=== PATIENT | female | born 1960 | race Caucasian/White ===

== ENCOUNTER 2023-10-18 14:14 | Day surgery (SDC) | payer BC ==
[2023-10-18] MEDS ORDERED: XYLOCAINE-MPF 1% 5ML SDV IJ ONE (14:15)
[2023-10-18] MEDS ORDERED: Decadron 4 MG INJ IV ONE (14:15)
[2023-10-18] MEDS ORDERED: Sodium Chloride 0.9(Preservative Free) 10 ML IJ ONE (14:15)
[2023-10-18] MEDS ORDERED: Lactated Ringers 1,000 ML IV ONE (16:31)
--- NOTE | 2023-10-18 16:47 | XRAY ---
Indication: Cervical JOSE. Intraoperative fluoroscopy provided for 29 seconds. 3 digital spot image submitted for interpretation demonstrates posterior needle tip at the cervical thoracic junction. Small amount of contrast injected for needle tip placement. Correlate with intraoperative findings/report.
--- NOTE | 2023-10-18 16:53 | XRAY ---
29 seconds of fluoroscopy was used in surgery for a cervical JOSE.
== END 2023-10-18 16:30 | disposition home or self-care (01) ==
LOC: SDC-PAIN 14:14
PROVIDERS: ATTEND Psychiatry & Neurology Pain Medicine
DX: M54.12 Radiculopathy, cervical region (principal); Z79.899 Other long term (current) drug therapy
CPT/HCPCS: 62321; 72040; 77003; J1100; Q9966

== ENCOUNTER 2023-11-28 11:21 | Day surgery (SDC) | payer BC ==
[2023-11-28] MEDS ORDERED: LIDOCAINE HCL 2% 100 MG/5 ML IJ ONE (11:22)
[2023-11-28] MEDS ORDERED: Decadron 4 MG INJ IV ONE (11:22)
[2023-11-28] MEDS ORDERED: DIPRIVAN 200 MG/20 ML IV ONE (14:24)
[2023-11-28] MEDS ORDERED: Lactated Ringers 1,000 ML IV ONE (14:50)
--- NOTE | 2023-11-28 15:01 | XRAY ---
Indication: Left C2-C4 MBB Intraoperative fluoroscopy provided for 12 seconds. 3 digital spot image submitted for interpretation demonstrates posterior needle tips projecting over the expect left C2-C4 nerve roots. Correlate with intraoperative findings/report.
--- NOTE | 2023-11-28 15:07 | XRAY ---
12 seconds of fluoroscopy was used in surgery for a left C2-C4 MBB.
== END 2023-11-28 14:40 | disposition home or self-care (01) ==
LOC: SDC-PAIN 11:21
PROVIDERS: ATTEND Psychiatry & Neurology Pain Medicine
DX: M47.812 Spondylosis without myelopathy or radiculopathy, cervical region (principal)
CPT/HCPCS: 64490; 64491; 72040; 77002; J1100; J2704

== ENCOUNTER 2023-12-13 07:51 | Day surgery (SDC) | payer BC ==
[2023-12-13] MEDS ORDERED: Decadron 4 MG INJ IV ONE (07:52)
[2023-12-13] MEDS ORDERED: BUPIVACAINE 0.5% VIAL IJ ONE (07:52)
[2023-12-13] MEDS ORDERED: DIPRIVAN 200 MG/20 ML IV ONE (10:07)
--- NOTE | 2023-12-13 11:41 | XRAY ---
Indication: Left C2-C4 MBB Intraoperative fluoroscopy provided for 19 seconds. 2 digital spot image submitted for interpretation demonstrates posterior needle tips projecting over the expected left C2-C4 nerve roots. Correlate with intraoperative findings/report.
[2023-12-13] MEDS ORDERED: Lactated Ringers 1,000 ML IV ONE (12:04)
--- NOTE | 2023-12-13 13:24 | XRAY ---
19 seconds of fluoroscopy was used in surgery for a left C2-C4 MBB.
== END 2023-12-13 10:35 | disposition home or self-care (01) ==
LOC: SDC-PAIN 07:51
PROVIDERS: ATTEND Psychiatry & Neurology Pain Medicine
DX: M47.812 Spondylosis without myelopathy or radiculopathy, cervical region (principal)
CPT/HCPCS: 64490; 64491; 72040; 77002; J1100; J2704

== ENCOUNTER 2024-01-16 07:12 | Day surgery (SDC) | payer MEDICARE, BC ==
[2024-01-16] MEDS ORDERED: LIDOCAINE HCL 2% 100 MG/5 ML IJ ONE (07:13)
[2024-01-16] MEDS ORDERED: Decadron 4 MG INJ IV ONE (07:13)
[2024-01-16] MEDS ORDERED: DIPRIVAN 200 MG/20 ML IV ONE (10:21)
[2024-01-16] MEDS ORDERED: Lactated Ringers 1,000 ML IV ONE (15:01)
--- NOTE | 2024-01-16 15:18 | XRAY ---
Indication: Right C2-C4 MBB Intraoperative fluoroscopy provided for 14 seconds. 2 digital spot images submitted for interpretation demonstrates posterior needle tips projecting over the expected right C2-C4 nerve roots. Correlate with intraoperative findings/report.
--- NOTE | 2024-01-16 16:47 | XRAY ---
14 seconds of fluoroscopy was used in surgery for a right C2-C4 MBB.
== END 2024-01-16 11:10 | disposition home or self-care (01) ==
LOC: SDC-PAIN 07:12
PROVIDERS: ATTEND Psychiatry & Neurology Pain Medicine
DX: M47.812 Spondylosis without myelopathy or radiculopathy, cervical region (principal); Z79.899 Other long term (current) drug therapy
CPT/HCPCS: 64490; 64491; 72040; 77002; 82947; J1100; J2704

== ENCOUNTER 2024-02-14 07:43 | Day surgery (SDC) | payer MEDICARE, BC ==
[2024-02-14] MEDS ORDERED: Decadron 4 MG INJ IV ONE (07:44)
[2024-02-14] MEDS ORDERED: BUPIVACAINE 0.5% VIAL IJ ONE (07:44)
[2024-02-14] MEDS ORDERED: DIPRIVAN 200 MG/20 ML IV ONE (09:05)
[2024-02-14] MEDS ORDERED: Versed 2 MG/2 ML Injection ONE (09:05)
[2024-02-14] MEDS ORDERED: Lactated Ringers 1,000 ML IV ONE (09:23)
--- NOTE | 2024-02-14 10:32 | XRAY ---
Indication: Right C2-C4 MBB. Intraoperative fluoroscopy provided for 15 seconds. 2 digital spot image submitted for interpretation demonstrates posterior needle tips projecting over expected right C2-C4 nerve roots. Correlate with intraoperative findings/report.
--- NOTE | 2024-02-14 11:24 | XRAY ---
15 seconds of fluoroscopy was used in surgery for a right C2-C4 MBB.
== END 2024-02-14 09:30 | disposition home or self-care (01) ==
LOC: SDC-PAIN 07:43
PROVIDERS: ATTEND Psychiatry & Neurology Pain Medicine
DX: M47.812 Spondylosis without myelopathy or radiculopathy, cervical region (principal); R73.03 Prediabetes
CPT/HCPCS: 64490; 64491; 72040; 77002; 82947; J1100; J2250; J2704

== ENCOUNTER 2024-03-12 06:56 | Day surgery (SDC) | payer MEDICARE, BC ==
[2024-03-12] MEDS ORDERED: XYLOCAINE-MPF 1% 5ML SDV IJ ONE (06:57)
[2024-03-12] MEDS ORDERED: Decadron 4 MG INJ IV ONE (06:57)
[2024-03-12] MEDS ORDERED: BUPIVACAINE 0.5% VIAL IJ ONE (06:57)
[2024-03-12] MEDS ORDERED: DIPRIVAN 200 MG/20 ML IV ONE ×2 (08:02→08:23)
[2024-03-12] MEDS ORDERED: Xylocaine-Mpf 2% 5 Ml Vial ONE (08:11)
[2024-03-12] MEDS ORDERED: Lactated Ringers 1,000 ML IV ONE (08:38)
--- NOTE | 2024-03-12 11:41 | XRAY ---
Indication: Left C2-C4 RFA. Intraoperative fluoroscopy provided for 18 seconds. 3 digital spot image submitted for interpretation demonstrates posterior needle tips projecting over the expected left C2-C4 nerve roots. Correlate with intraoperative findings/report.
--- NOTE | 2024-03-12 12:48 | XRAY ---
18 seconds of fluoroscopy was used in surgery for a left C2-C4 RFA.
== END 2024-03-12 08:47 | disposition home or self-care (01) ==
LOC: SDC-PAIN 06:56
PROVIDERS: ATTEND Psychiatry & Neurology Pain Medicine
DX: M47.812 Spondylosis without myelopathy or radiculopathy, cervical region (principal); R73.03 Prediabetes
CPT/HCPCS: 64633; 64634; 72040; 77002; 82947; J1100; J2704

== ENCOUNTER 2024-03-19 06:56 | Day surgery (SDC) | payer MEDICARE, BC ==
[2024-03-19] MEDS ORDERED: BUPIVACAINE 0.5% VIAL IJ ONE (06:57)
[2024-03-19] MEDS ORDERED: Decadron 4 MG INJ IV ONE (06:57)
[2024-03-19] MEDS ORDERED: XYLOCAINE-MPF 1% 5ML SDV IJ ONE (06:57)
[2024-03-19] MEDS ORDERED: DIPRIVAN 200 MG/20 ML IV ONE ×2 (07:22→08:17)
[2024-03-19] MEDS ORDERED: Lactated Ringers 1,000 ML IV ONE (09:48)
--- NOTE | 2024-03-19 12:31 | XRAY ---
Indication: Right C2-C4 RFA. Intraoperative fluoroscopy provided for 22 seconds. 2 digital spot image submitted for interpretation demonstrates posterior needle tips projecting over the expected right C2-C4 nerve roots. Correlate with interoperative findings/report.
--- NOTE | 2024-03-19 12:37 | XRAY ---
22 seconds of fluoroscopy was used in surgery for a right C2-C4 RFA.
== END 2024-03-19 08:43 | disposition home or self-care (01) ==
LOC: SDC-PAIN 06:56
PROVIDERS: ATTEND Psychiatry & Neurology Pain Medicine
DX: M47.812 Spondylosis without myelopathy or radiculopathy, cervical region (principal); R73.03 Prediabetes
CPT/HCPCS: 64635; 64636; 72040; 77002; 82947; J1100; J2704

== ENCOUNTER 2024-07-09 06:55 | Day surgery (SDC) | payer MEDICARE, BC ==
[2024-07-09] MEDS ORDERED: Depo-Medrol 40 MG/ML IM ONE (06:56)
[2024-07-09] MEDS ORDERED: BUPIVACAINE 0.5% VIAL IJ ONE (06:56)
[2024-07-09] MEDS ORDERED: DIPRIVAN 200 MG/20 ML IV ONE (08:30)
--- NOTE | 2024-07-09 09:31 | XRAY ---
Indication: Left shoulder and subacromial bursa injection. Intraoperative fluoroscopy provided for 23 seconds. 3 digital spot images submitted for interpretation demonstrates needle tip projecting over the left glenohumeral joint superiorly. Second needle tip subacromial. Small amount of contrast injected for needle tip placement. Correlate with intraoperative findings/report.
[2024-07-09] MEDS ORDERED: Lactated Ringers 1,000 ML IV ONE (09:50)
--- NOTE | 2024-07-09 10:30 | XRAY ---
23 seconds of fluoroscopy was used in surgery for a left intra-articular shoulder and subacromial bursa injection.
== END 2024-07-09 08:58 | disposition home or self-care (01) ==
LOC: SDC-PAIN 06:55
PROVIDERS: ATTEND Psychiatry & Neurology Pain Medicine
DX: M19.012 Primary osteoarthritis, left shoulder (principal); M75.52 Bursitis of left shoulder; R73.03 Prediabetes
CPT/HCPCS: 20610; 73030; 77002; 82947; J2704; Q9966

== ENCOUNTER 2024-09-04 09:58 | Day surgery (SDC) | payer MEDICARE, BC ==
[2024-09-04] MEDS ORDERED: Depo-Medrol 40 MG/ML IM ONE (09:59)
[2024-09-04] MEDS ORDERED: BUPIVACAINE 0.5% VIAL IJ ONE (09:59)
[2024-09-04] MEDS ORDERED: DIPRIVAN 200 MG/20 ML IV ONE (11:01)
--- NOTE | 2024-09-04 13:01 | XRAY ---
Indication: Left knee injection. Intraoperative fluoroscopy provided for 5 seconds. Single digital spot image submitted for interpretation demonstrates needle tip projecting over left femur intercondylar notch. Small amount of contrast injected for needle placement. Correlate with intraoperative findings/report.
--- NOTE | 2024-09-04 13:07 | XRAY ---
5 seconds of fluoroscopy was used in surgery for a left intra-articular knee injection.
== END 2024-09-04 11:40 | disposition home or self-care (01) ==
LOC: SDC-PAIN 09:58
PROVIDERS: ATTEND Psychiatry & Neurology Pain Medicine
DX: M17.12 Unilateral primary osteoarthritis, left knee (principal); R73.03 Prediabetes
CPT/HCPCS: 20610; 73560; 77002; 82947; J2704; Q9966

== ENCOUNTER 2025-07-22 09:45 | Day surgery (SDC) | payer MEDICARE, BC ==
[2025-07-22] MEDS ORDERED: BUPIVACAINE 0.5% VIAL IJ ONE (09:46)
[2025-07-22] MEDS ORDERED: methylPREDNISolone acetate IM ONE (09:46)
[2025-07-22] MEDS ORDERED: propofoL IV ONE (11:12)
[2025-07-22] MEDS ORDERED: Lactated Ringers 1,000 ML IV ONE (12:43)
--- NOTE | 2025-07-22 19:33 | XRAY ---
Indication: Left shoulder injection. Intraoperative fluoroscopy provided for 5 seconds. Single digital spot image submitted for interpretation demonstrates needle tip projecting over left glenohumeral joint superiorly. Small amount of contrast injected for needle tip placement. Correlate with intraoperative findings/report.
--- NOTE | 2025-07-22 19:37 | XRAY ---
5 seconds of fluoroscopy was used in surgery for a left intra-articular shoulder injection.
== END 2025-07-22 11:45 | disposition home or self-care (01) ==
LOC: SDC-PAIN 09:45
PROVIDERS: ATTEND Psychiatry & Neurology Pain Medicine
DX: M19.012 Primary osteoarthritis, left shoulder (principal); R73.03 Prediabetes